=== PATIENT | female | born 1995 | race Caucasian/White ===

== ENCOUNTER 2018-06-25 14:46 | Emergency (ER) | payer BC ==
[~2018-06-25] VITALS: Ht 157.5 cm; Wt 80.0 kg
[~2018-06-25 14:46] MED LIST: CEPH-368 PO; IBUP-1223 PO; OXYC-302 PO; PREN1TAB27 PO
[2018-06-25] MEDS ORDERED: SUMA25TA4 PO (16:19)
[2018-06-25] MEDS ORDERED: SODIUM CHLORIDE 0.9% 1,000ML IVBOLUS ONE (16:30)
[2018-06-25] MEDS ORDERED: METOCLOPRAMIDE 5 MG/ML, 2ML IVPush ONE (16:30)
[2018-06-25] MEDS ORDERED: DIPHENHYDRAMINE 50 MG/ML, 1ML IVPush ONE (16:30)
[2018-06-25] MEDS ORDERED: METOCLOPRAMIDE 5 MG/ML, 2ML ONE (17:07)
[2018-06-25 17:28] LABS: BASOPHILS # (AUTO) 0.03 x10^3/uL (0-0.1); BASOPHILS % (AUTO) 0 % (0-1); EOSINOPHILS # (AUTO) 0.04 x10^3/uL (0-0.4); EOSINOPHILS % (AUTO) 1 % (1-7); HCT (SEDRATE) 43.2 % (34.6-47.8); LYMPHOCYTES # (AUTO) 2.77 x10^3/uL (1-3.4); LYMPHOCYTES % (AUTO) 33 % (22-44); MD NO; MEAN CORPUSCULAR HEMOGLOBIN 29.8 pg (27.0-34.8); MEAN CORPUSCULAR HGB CONC 33.7 g/dL (32.4-35.8); MEAN CORPUSCULAR VOLUME 88.4 fL (80-100); MEAN PLATELET VOLUME 8.6 fL (7.4-10.4); MONOCYTES # (AUTO) 0.44 x10^3/uL (0.2-0.8); MONOCYTES % (AUTO) 5 % (2-9); NEUTROPHILS # (AUTO) 5.01 x10^3/uL (1.8-6.8); NEUTROPHILS % (AUTO) 60 % (42-75); PLATELET COUNT 282 x10^3/uL (130-400); RED BLOOD COUNT 4.95 x10^6/uL (3.82-5.3); RED CELL DISTRIBUTION WIDTH 12.7 % (9.6-15.2)
[2018-06-25] MEDS ORDERED: KETOROLAC 30 MG/1 ML ONE (17:29)
[2018-06-25] MEDS ORDERED: KETOROLAC 30 MG/1 ML IVPush ONE (17:30)
[2018-06-25] MEDS ORDERED: DIAZEPAM 5 MG/ML, 2ML IVPush ONE (17:30)
[2018-06-25 17:40] LABS: ALBUMIN 3.8 g/dL (3.4-5.0); ANION GAP 10 mmol/L (5-15); CALCIUM 8.9 mg/dL (8.5-10.1); CHLORIDE 107 mmol/L (98-107); CREATININE 0.61 mg/dL (0.55-1.02); HIGH-SENSITIVITY CRP 0.11 mg/dL (0.02-0.30)
[2018-06-25] MEDS ORDERED: GADOBUTROL 10 MMOL/10 ML VIAL ONE (18:54)
[2018-06-25 19:10] VITALS: BP 100/61
== END 2018-06-25 19:57 | disposition home or self-care (01) ==
LOC: ED 19:51
DX: G44.209 Tension-type headache, unspecified, not intractable (principal)
CPT/HCPCS: 36415; 70450; 70546; 70551; 80048; 82040; 84703; 85025; 85651; 86141; 87081; 87880; 96361; 96374; 96375; 99285; A9585; J1200; J1885; J2765; J3360; J7030